=== PATIENT | male | born 2000 | race Caucasian/White ===

== ENCOUNTER 2024-03-17 16:26 | Emergency (ER) | payer OTHER ==
[~2024-03-17] VITALS: Ht 185.4 cm; Wt 64.4 kg
[2024-03-17 16:59] VITALS: BP 106/70; PULSE 104; RESP 18; TEMP 98.6; O2SAT 97
[2024-03-17 17:40] VITALS: BP 112/62; PULSE 88; RESP 16; TEMP 98; O2SAT 99
== END 2024-03-17 17:40 | disposition home or self-care (01) ==
LOC: MED 16:26
DX: R00.0 Tachycardia, unspecified (principal); Z00.8 Encounter for other general examination; Z79.899 Other long term (current) drug therapy
CPT/HCPCS: 99281

== ENCOUNTER 2024-03-19 23:55 | Emergency (ER) | payer OTHER ==
[~2024-03-19] VITALS: Ht 167.6 cm; Wt 49.9 kg
[2024-03-20 00:08] VITALS: BP 129/81; PULSE 61; RESP 16; TEMP 97.8; O2SAT 99
[2024-03-20 00:14] VITALS: BP 129/81; PULSE 61; RESP 16; TEMP 97.8
[2024-03-20 00:40] VITALS: O2SAT 99
[2024-03-20] MEDS: buprenorphine HCL 2 MG sublingual tab SL ONE (01:18)
[2024-03-20] MEDS ORDERED: QUET100T PO (03:19)
[2024-03-20] MEDS ORDERED: BUPR1FIL2 SL (03:19)
== END 2024-03-20 04:15 | disposition home or self-care (01) ==
LOC: MED 23:55
DX: F11.23 Opioid dependence with withdrawal (principal); R11.2 Nausea with vomiting, unspecified; R19.7 Diarrhea, unspecified; F41.9 Anxiety disorder, unspecified; Z79.899 Other long term (current) drug therapy
CPT/HCPCS: 99283